=== PATIENT | male | born 1990 | race Caucasian/White ===

== ENCOUNTER 2019-01-07 12:53 | Observation (INO) ==
[2019-01-07] MEDS ORDERED: Naloxone 0.4 MG/ML INJ IM ONE (14:05)
[2019-01-07 14:28] LABS: Basophils % 0.4 %; Eosinophils # 0.1 K/mcL (0.0-0.6); Eosinophils % 1.6 %; Immature Granulocytes % 0.2 % (0-4); Lymphocytes # 4.6 K/mcL (0.6-4.6); Lymphocytes % 50.9 %; Mean Corpuscular HGB Conc 34.1 g/dL (31.6-35.5); Mean Corpuscular Hemoglobin 30.7 pg (28.0-33.3); Mean Platelet Volume 9.6 fL (9.4-12.4); Monocytes # 0.7 K/mcL (0.0-1.3); Monocytes % 7.4 %; Neutrophils # 3.5 K/mcL (1.6-8.9); Platelet Count 208 K/mcL (140-400); Red Blood Count 4.89 M/mcL (4.19-5.50); Red Cell Distribution Width 12.2 % (11.5-14.5); Segmented Neutrophils % 39.5 %
[2019-01-07 14:47] LABS: Acetaminophen < 10 mcg/mL (10-20); Ethanol < 10 mg/dL (Less than 10); Salicylate < 2.5 mg/dL (15.0-30.0)
[2019-01-07 14:48] LABS: BUN/Creatinine Ratio 12 (6-26); Blood Urea Nitrogen 11 mg/dL (6-20); Calcium 9.4 mg/dL (8.6-10.3); Carbon Dioxide 33 mEq/L (23-29); Chloride 99 mEq/L (98-107); Glucose 116 mg/dL (70-105); Osmolality,Calculated 274 (280-300); Potassium 3.9 mEq/L (3.5-5.1); Sodium 132 mEq/L (136-145); eGFR For African Americans > 60 (> 60); eGFR For Non-African Americans > 60 (> 60)
[2019-01-07] MEDS ORDERED: Ondansetron ODT 4 MG TAB.RAPDIS SL PRN (16:02)
[2019-01-07] MEDS ORDERED: Acetaminophen 325 MG TABLET PO PRN (16:02)
[2019-01-07 16:05] LABS: Amphetamine Screen,Urine Negative ng/mL (Cutoff=1000); Barbiturate Screen,Urine Negative ng/mL (Cutoff=200); Benzodiazepines Screen,Urine Negative ng/mL (Cutoff=200); Cannabinoid Screen,Urine Negative ng/mL (Cutoff = 50); Cocaine Screen,Urine Negative ng/mL (Cutoff= 300); Opiate Screen,Urine Positive ng/mL (Cutoff=300); Phencyclidine Screen,Urine Negative ng/mL (Cutoff=25)
[2019-01-07] MEDS: 0.9 % Sodium Chloride 1,000 ML IVC SCH (16:35)
[2019-01-07] MEDS: Naloxone 0.4 MG/ML INJ IVP PRN ×2 (18:09→19:44)
[2019-01-08 05:38] LABS: BUN/Creatinine Ratio 13 (6-26); Blood Urea Nitrogen 10 mg/dL (6-20); Calcium 8.8 mg/dL (8.6-10.3); Carbon Dioxide 29 mEq/L (23-29); Chloride 102 mEq/L (98-107); Glucose 110 mg/dL (70-105); Magnesium 1.8 mg/dL (1.6-2.6); Osmolality,Calculated 278 (280-300); Phosphorous 4.7 mg/dL (2.7-4.5); Sodium 134 mEq/L (136-145); eGFR For African Americans > 60 (> 60); eGFR For Non-African Americans > 60 (> 60)
[2019-01-08] MEDS: 0.9 % Sodium Chloride 1,000 ML IVC SCH (06:42)
[2019-01-08] MEDS ORDERED: Haloperidol Lactate 5 MG/ML VIAL IM ONE (17:19)
[2019-01-09 02:53] VITALS: BP 136/79
== END 2019-01-09 13:17 | disposition other institution (70) ==
LOC: EMEROOARM 12:53 → 3BNU 12:53 → SUATTDRO 16:40 → 3BNU 16:57
PROVIDERS: ADMIT Internal Medicine; ATTEND Internal Medicine